=== PATIENT | female | born 1970 | race Two or more races ===

== ENCOUNTER 2024-06-19 19:58 | Emergency (ER) | payer OTHER ==
[~2024-06-19] VITALS: Ht 175.3 cm; Wt 75.2 kg
[2024-06-19 21:08] LABS: Basophils # (auto) 0.2 10 ^3/uL (0-0.2); Basophils % (auto) 1.5 % (0.0-2.0); Eosinophils # (auto) 0.3 10 ^3/uL (0-0.8); Eosinophils % (auto) 2.2 % (0.0-7.0); Hematocrit 38.6 % (36.0-46.0); Hemoglobin 13.6 g/dL (12.2-16.2); Lymphocytes # (auto) 2.9 10 ^3/uL (0.4-5.4); Lymphocytes % (auto) 24.1 % (10.0-50.0); Mean Corpuscular Hemoglobin 29.8 pg (28.0-32.0); Mean Corpuscular Hgb Conc. 35.2 g/dL (32.0-36.0); Mean Corpuscular Volume 84.5 fL (80.0-100.0); Monocytes # (auto) 1.2 10 ^3/uL (0-1.3); Monocytes % (auto) 10.4 % (0.0-12.0); Neutrophils # (auto) 7.4 10 ^3/uL (1.6-8.6); Neutrophils % (auto) 61.8 % (37.0-80.0); Nucleated Red Blood Cells % 0.2 %; Red Blood Cells 4.56 10^6/uL (4.0-5.20); Red Cell Distribution Width 13.1 % (11.8-14.3); White Blood Cell 11.9 10^3/uL (4.4-10.8)
[2024-06-19 21:23] LABS: Alanine Aminotransferase 32 U/L (7-40); Albumin 4.8 g/dL (3.2-4.8); Alkaline Phosphatase 117 U/L (46-116); Anion Gap 8 (5-15); Aspartate Aminotransferase 26 U/L (13-40); BUN/Creatinine Ratio 9.6 (10.0-20.0); Bilirubin, Total 0.8 mg/dL (0.2-1.0); Blood Urea Nitrogen 10 mg/dL (9-23); Calcium 10.1 mg/dL (8.7-10.4); Carbon Dioxide 31 mmol/L (20-30); Chloride 97 mmol/L (98-107); Glucose 144 mg/dL (74-106); INR 1.03 (0.9-1.15); Lipase 37 U/L (12-53); Prothrombin Time 10.9 sec (9.3-11.8); Sodium 136 mmol/L (136-145); Total Protein 8.3 g/dL (5.7-8.2)
[2024-06-19] MEDS: SODIUM CHLORIDE 0.9% 1,000 ML IV ONE (23:44)
[2024-06-19] MEDS: ONDANSETRON HCL 4 MG/2 ML VIAL IV ONE (23:59)
[2024-06-20] VITALS: PULSE 82; RESP 16; O2SAT 98
[2024-06-20] MEDS: metroNIDAZOLE 500MG/100ML 100 ML IV ONE (00:03)
[2024-06-20] MEDS: levoFLOXacin 500MG 100 ML IV ONE (00:49)
[2024-06-20] MEDS: POTASSIUM EFFERVESENT TAB 25 MEQ GT ONE (01:50)
[2024-06-20 02:08] LABS: Urine Bacteria None Seen /hpf (None Seen)
[2024-06-20 02:15] LABS: Urine Blood Negative /uL (Negative); Urine Budding Yeast OCCASIONAL /hpf (None Seen); Urine Clarity Clear (Clear); Urine Color Light-Yellow (Yellow); Urine Mucus FEW (None Seen); Urine Protein, UAD Negative (Negative); Urine Specific Gravity 1.012 (1.001-1.035); Urine Urobilinogen Normal (Negative); Urine WBC 5 /hpf (0 - 5)
[2024-06-20 03:25] VITALS: PULSE 80; RESP 18; O2SAT 96
[2024-06-20] MEDS: MORPHINE SULFATE 4 MG/ML SYR/VIAL IV ONE ×2 (04:02)
[2024-06-20 05:12] LABS: COVID19 ANTIGEN SOFIA FIA NEGATIVE (NEGATIVE)
[2024-06-20 05:40] VITALS: BP 122/68; PULSE 78; RESP 19; TEMP 98.2; O2SAT 96
== END 2024-06-20 03:27 | disposition short-term general hospital (02) ==
LOC: ER 19:58
DX: K57.32 Diverticulitis of large intestine without perforation or abscess without bleeding (principal); M54.50 Low back pain, unspecified; I10 Essential (primary) hypertension; Z90.710 Acquired absence of both cervix and uterus; Z20.822 Contact with and (suspected) exposure to COVID-19
CPT/HCPCS: 36415; 74176; 80053; 81001; 83690; 85025; 85610; 85730; 87426; 96365; 96367; 96375; 96376; 99285; J1956; J2270; J2405; J3490; J7030